=== PATIENT | female | born 1990 | race Two or more races ===

== ENCOUNTER 2020-10-11 16:53 | Outpatient (CLI) | payer OTHER ==
[2020-10-11] MEDS ORDERED: PRENATAL TABLE1 EAC1 PO (17:26)
== END 2020-10-12 14:34 | disposition home or self-care (01) ==
LOC: OBS/DEL 16:53
PROVIDERS: ATTEND Obstetrics & Gynecology
DX: O60.03 Preterm labor without delivery, third trimester (principal); O98.513 Other viral diseases complicating pregnancy, third trimester; U07.1 COVID-19; Z3A.28 28 weeks gestation of pregnancy

== ENCOUNTER 2020-10-15 12:51 | Inpatient (IN) | payer OTHER ==
[~2020-10-15] VITALS: Ht 162.6 cm; Wt 97.1 kg
[~2020-10-15 12:51] MED LIST: PRENATAL TABLE1 EAC1 PO
== END 2020-10-18 08:59 | disposition home or self-care (01) | DRG 832 ==
LOC: OBS/DEL 12:51 → LDR 18:35 → OBS/DEL 18:35 → LDR 10-18 08:59
PROVIDERS: ADMIT Obstetrics & Gynecology; ATTEND Obstetrics & Gynecology
PROC: 4A1HXFZ Monitoring of Products of Conception, Cardiac Rhythm, External Approach (ICD-10-PCS; principal; 2020-10-15)
PROC: BY4CZZZ Ultrasonography of Second Trimester, Single Fetus (ICD-10-PCS; 2020-10-15)
DX: O47.03 False labor before 37 completed weeks of gestation, third trimester (principal); O26.873 Cervical shortening, third trimester; O36.8130 Decreased fetal movements, third trimester, not applicable or unspecified; Z3A.28 28 weeks gestation of pregnancy

== ENCOUNTER 2020-12-25 00:23 | Inpatient (IN) | payer OTHER ==
[~2020-12-25] VITALS: Ht 162.6 cm; Wt 102.5 kg
== END 2020-12-27 14:06 | disposition home or self-care (01) | DRG 807 ==
LOC: OBS/DEL 00:23 → LDR 09:57 → OB/GYN 20:35
PROVIDERS: ADMIT Obstetrics & Gynecology; ATTEND Obstetrics & Gynecology
PROC: 10E0XZZ Delivery of Products of Conception, External Approach (ICD-10-PCS; principal; 2020-12-25)
PROC: 0HQ9XZZ Repair Perineum Skin, External Approach (ICD-10-PCS; 2020-12-25)
PROC: 10907ZC Drainage of Amniotic Fluid, Therapeutic from Products of Conception, Via Natural or Artificial Opening (ICD-10-PCS; 2020-12-25)
PROC: 4A1HXFZ Monitoring of Products of Conception, Cardiac Rhythm, External Approach (ICD-10-PCS; 2020-12-25)
DX: O99.824 Streptococcus B carrier state complicating childbirth (principal); O70.0 First degree perineal laceration during delivery; Z37.0 Single live birth; Z3A.39 39 weeks gestation of pregnancy; Z20.822 Contact with and (suspected) exposure to COVID-19